=== PATIENT | male | born 1965 | race Caucasian/White ===

== ENCOUNTER 2017-04-03 07:28 | Outpatient (CLI) | payer BC ==
[~2017-04-03] VITALS: Ht 180.3 cm; Wt 90.9 kg
--- NOTE | ~2017-04-03 | HEMODYNAMI ---
PATIENT:DEIRDRE PAREDES MEDICAL RECORD: [id number] : 65 LOCATION:[facility] ADMISSION DATE: 04/03/17 Generatedon:04/03/20179:58 Patient name: DEIRDRE PAREDES Patient #: [id number] SSN: DO B: 1965 Date of study: 04/03/2017 Page: Of Hemodynamic Procedure Report Patient Data Patient Demographics Procedure consent was obtained First Name: DEIRDRE Gender: Male Last Name: REGGIE : 1965 Middle Initial: D Age: 51 year(s) Patient #: [id number] Race: Unknown Additional ID: [id number] Contact details [address]: [address] [place] [address] State: [place] City: [place] Zip code: [address] Past Medical History Allergies: No known allergies Admission Admission Data Admission Date: 04/03/2017 Admission Time: 7:28 Admit Source: Other Lab Results Lab Result Date: 04/03/2017 Lab Result Time: 8:00 Biochemistry Name Units Result Min Max BUN mg/dl 14 --(--*-)-- 7 18 Creatinine mg/dl 0.9 --(-*--)-- 0.6 1.3 CBC Name Units Result Min Max Hematocrit % 40.3 -*(----)-- 42 54 Hemoglobin g/dl 14.6 --(-*--)-- 13.5 17.5 Procedure Procedure Types Cath Procedure Diagnostic Procedure C [facility] w/Coronaries FFR/IVUS Intra-Coronary IVUS Initial PCI Procedure Coronary Stent Coronary Stent Initial Miscellaneous Procedures Moderate Sedation up to 15 minutes Procedure Description Procedure Date Procedure Date: 04/03/2017 Procedure Start Time: 9:30 Procedure End Time: 9:47 Procedure Staff Name Function Nadege Woods RT Scrub Nitin Urban MD Performing Physician Kobe Cline RT Monitor Charlee Parmar RN Nurse Procedure Data Cath Procedure Fluoroscopy Diagnostic fluoroscopy Total fluoroscopy Time: 3.3 time: 3.3 min min Diagnostic fluoroscopy Total fluoroscopy dose: 391 dose: 391 mGy mGy Contrast Material Contrast Material Type Amount (ml) Isovue 300 69 Entry Location Entry Primary Successful Side Size Upsize Upsize Entry Closure Dao ccessful Closure Location (Fr) 1 (Fr) 2 (Fr) Remarks Device Remarks Radial Right 6 Fr Mechanical artery Short Compression Estimated blood loss: 10 ml Diagnostic catheters Device Type Used For End Catheter Placement Diagnostic Terumo 5Fr Procedure [place] 110cm catheter Procedure Complications No complications Procedure Medications Medication Administration Route Dosage Fentanyl I.V. 100 mcg Versed I.V. 2 mg 0.9% NaCl I.V. 100 ml/hr Lidocaine 2% added to field 20 Heparin Flush Bag added to field 2 bags (1000units/500ml NS) Oxygen NC 2 l/min Versed I.V. 1 mg Fentanyl I.V. 50 mcg Radial Cocktail added to field 1 syringe (Verapomil 2mg/Nitro 400mcg/Heparin 1500units) Heparin Bolus 4000 units Integrilin (Bolus I.V. 8.6 ml 2mg/ml) Hemodynamics Rest HGB: 14.6 (g/dl) Heart Rate: 65 (bpm) Snapshots Pre Cath Intra NCS Post Cath Vital Signs Time Heart Resp SPO2 etCO2 NIBP Rhythm Pain Sedation Rate (ipm) (%) (mmHg) (mmHg) Status Level (bpm) 9:17:46 70 16 98 0 118/66(84) NSR 0 (11) 10(A) , No pain 9:22:24 63 16 98 38.3 113/64(82) NSR 0 (11) 10(A) , No pain 9:26:59 69 14 97 38.3 104/68(84) NSR 0 (11) 10(A) , No pain 9:31:35 69 14 96 39.1 100/64(87) NSR 0 (11) 9(A) , No pain 9:36:10 76 18 95 24.8 75/54(67) NSR 0 (11) 9(A) , No pain 9:41:09 78 17 96 33.1 Measuring NSR 0 (11) 9(A) , No pain 9:41:17 78 17 96 33.1 100/46(85) NSR 0 (11) 10(A) , No pain 9:45:51 78 18 96 23.3 102/57(80) NSR 0 (11) 10(A) , No pain 9:49:28 76 18 96 17.3 92/67(82) NSR 0 (11) 10(A) , No pain Medications Time Medication Route Dose Verified Delivered Reason Note s Effectiveness by by 9:25:08 Heparin Flush added 2 bags Nitin Taveras used for Bag to Wilmar Urban MD procedure (1000units/500ml field NS) 9:25:23 Oxygen NC 2 l/min Nitin Deshpande Per physician Wilmar Parmar RN 9:25:38 0.9% NaCl I.V. 100ml/hr Nitin Charlee used for Wilmar Parmar RN procedure 9:25:51 Lidocaine 2% added 20ml Nitin Taveras for local to vial Wilmar Urban MD anesthetic field 9:26:52 Fentanyl I.V. 100 mcg Nitin Deshpande for sedation Wilmar Parmar RN 9:27:05 Versed I.V. 2 mg Nitin Ulrichfany for sedation Wilmar Parmar RN 9:28:10 Radial Cocktail added 1 Nitin Taveras for (Verapomil to syringe Wilmar Urban MD vasodilation 2mg/Nitro field 400mcg/Hepari 9:30:36 Heparin Bolus 4000 Nitin Deshpande for veri fied units Wilmar Parmar RN anticoagulation by 9:31:36 Versed I.V. 1 mg Nitin Deshpande for sedation Wilmar Parmar RN 9:31:40 Fentanyl I.V. 50 mcg Nitin Deshpande for sedation Wilmar Parmar RN 9:40:53 Integrilin I.V. 8.6ml Nitin Deshpande for veri fied (Bolus 2mg/ml) Wilmar Parmar RN antiplatelet by dr. shabbir urban wasted 1.5 Ml of vial Procedure Log Time Note 9:06:15 Informed consent obtained and on chart 9:06:35 Admit Source: Other 9:07:03 Nadege Woods RT(R) sent for patient. Start room use. 9:07:05 Diagnostic Cath status Elective 9:07:07 Time tracking: Regular hours 9:07:10 Plan of Care:Hemodynamics will remain stable., Cardiac rhythm will remain stable., Comfort level will be maintained., Respiratory function will remain adequate., Patient/ family verbilizes understanding of procedure., Procedure tolerated without complication., Recovers from procedure without complications.. 9:07:47 H&P Date Dictated: 04/03/2017 New H&P dictated by physician.. 9::31 Lab Result : Hemoglobin 14.6 g/dl 9:: Lab Result : Hematocrit 40.3 % 9::31 Lab Result : BUN 14 mg/dl 9:: Lab Result : Creatinine 0.9 mg/dl 9:10:24 Patient allergic to No known allergies 9:11:32 Patient received from Pre/Post Procedure Room to CCL 1 Alert and oriented. Tansferred to table in Supine position. 9:11:34 Correct patient and procedure confirmed by team. 9:11:34 Warm blankets applied, and lesley hugger turned on for patient comfort. 9:11:36 ECG and BP/O2 sat monitors applied to patient. 9:11:37 Pre-procedure instructions explained to patient. 9:11:38 Pre-op teaching completed and patient verbalized understanding. 9:11:39 Family in waiting room. 9:11:41 Patient NPO since Midnight. 9:16:55 Vital chart was started 9:24:35 Is patient on blood thinner?No 9:24:37 Patient diabetic? No. 9:24:40 Snore? Yes 9:24:40 Previous problem with sedation/anesthesia? No ? 9:24:41 Sleep apnea? Yes 9:24:42 Deviated septum? No 9:24:43 Opens mouth fully? Yes 9:24:44 Sticks out tongue? Yes 9:24:46 Airway obstruction? No ? 9:24:48 Dentures? No ? 9:24:50 Modified Braden's test Ulnar < 7 seconds 9:24:52 Patient pain scale 0/10 ?. 9:24:55 IV patent on arrival in left forearm with 0.9% NaCl at O. 9:24:57 Lab results completed and on chart. 9:24:59 Right Radial & Right Groin area was prepped with chlora-prep and draped in sterile fashion 9:25:00 Alarms reviewed by R. N. 9:25:01 Sharps counted by scrub and verified by R.N. 9:25:03 Use device set Radial Dx 9:25:04 MBrace Wrist Support opened to sterile field. 9:25:05 Acist Hand Control opened to sterile field. 9:25:05 Acist Manifold opened to sterile field. 9:25:06 Tegaderm 4 x 4 opened to sterile field. 9:25: Medline Cath Pack opened to sterile field. 9:25:07 Acist Syringe opened to sterile field. 9:25:08 Heparin Flush Bag (1000units/500ml NS) 2 bags added to field was administered by Nitin Urban MD; used for procedure; 9:25:08 Terumo 6Fr Slender Glidesheath opened to sterile field. 9:25:08 Bag Decanter opened to sterile field. 9:25: St Jose Elias 260cm J .035 wire opened to sterile field. 9:25:15 Physician arrived 9:25:16 Final Timeout: patient, procedure, and site verified with staff and physician. All members of the team are in agreement. 9:25:16 --------ALL STOP TIME OUT------ 9::18 Right Radial & Right Groin site verified by team. 9:25:22 Physical assessment completed. ASA score P 2 - A patient with mild systemic disease as per Nitin Urban MD. 9::23 Oxygen 2 l/min NC was administered by Charlee Parmar RN; Per physician; ::25 Sedation plan: IV Moderate Sedation Medication:Versed, Fentanyl 9:25:38 0.9% NaCl 100ml/hr I.V. was administered by Charlee Parmar RN; used for procedure; 9::51 Lidocaine 2% 20ml vial added to field was administered by Nitin Urban MD; for local anesthetic; 9::50 Baseline sample Acquired. 9::52 Fentanyl 100 mcg I.V. was administered by Charlee Parmar RN; for sedation; 9::54 Rhythm: sinus rhythm 9::55 Full Disclosure recording started 9:27:05 Versed 2 mg I.V. was administered by Charlee Parmar RN; for sedation; 9:28:10 Radial Cocktail (Verapomil 2mg/Nitro 400mcg/Heparin 1500units) 1 syringe added to field was administered by Nitin Urban MD; for vasodilation; 9:28:11 Zero performed for pressure channel P1 9:30:36 Heparin Bolus 4000 units was administered by Charlee Parmar RN; for anticoagulation; verified by 9:30:53 Procedure started. 9:30:58 Local anesthetic to right radial artery with Lidocaine 2% by Nitin Urban MD.INITIAL ACCESS ONLY 9:31:10 A 6 Fr Short sheath was inserted into the Right Radial artery 9:31:31 A Diagnostic Terumo 5Fr [place] 110cm catheter was advanced over the wire and used for Procedure. 9:31:36 Versed 1 mg I.V. was administered by Charlee Parmar RN; for sedation; 9:31:40 Fentanyl 50 mcg I.V. was administered by Charlee Parmar RN; for sedation; 9:32:47 LV gram done using OBREGON 9:32:49 Injector settings: Ml/sec: 5, Volume: 15, 9:32:56 EF : 60 % 9:33:03 LCA angiography performed. 9:33:58 RCA angiography performed. 9:34:38 Bluebox Now! PT Graphix J 182cm 0.014 guide wire opened to sterile field. 9:34:39 Merit BasixCompak Inflation Kit opened to sterile field. 9:34:39 Medtronic Launcher 6Fr AR 2.0 guide catheter opened to sterile field. 9:35:22 [place]ag[place] IVUS Catheter opened to sterile field. 9:35:40 6 Fr AR 2 guide catheter was inserted over the wire 9:35:47 pt grapix wire advanced. 9:36:00 Wire advanced across lesion. 9:36:02 IVUS catheter advanced over wire. 9:39:21 IVUS pass to RCA lesion performed. 9:39:22 IVUS catheter removed over wire. 9:40:38 Wire removed. 9:40:47 [place]arez Whisper J 300cm 0.014 guide wire opened to sterile field. 9:40:53 Integrilin (Bolus 2mg/ml) 8.6ml I.V. was administered by Charlee Parmar RN; for antiplatelet therapy; verified by dr. urban wasted 1.5 Ml of vial 9:41:11 whisper wire advanced. 9:41:38 Wire advanced across lesion. 9:42:09 Inflation Number: 1 A Medtronic Integrity 3.5 X 22 stent was prepped and advanced across the Prox RCA. The stent was deployed at 17 LEONID for 0:10 (min:sec). 9:42:16 Stent catheter was removed intact over wire. 9:42:17 Wire removed. 9:42:18 Guide catheter removed. 9:42:35 Terumo TR Band Standard opened to sterile field. 9:42:45 Sheath removed intact; hemostasis achieved with Mechanical Compression to the Right Radial artery. 9:42:47 Procedure ended.(Physican Out) 9:44:42 Fluoroscopy time 03.30 minutes. 9:44:45 Fluoroscopy dose: 391 mGy 9:44:45 Flurop Dose total: 391 9:44:48 Contrast amount:Isovue 300 69ml. 9:44:50 Sharps counted by scrub and verified by R.N. 9:44:52 TR band inflated with 9cc of air. 9:44:53 Insertion/operative site no bleeding no hematoma. 9:44:58 Post right radial artery:stable, soft, clean and dry 9:45:17 Post Procedure Pulses reassessed and unchanged 9:45:19 Post-procedure physical assessment completed. ASA score P 2 - A patient with mild systemic disease as per Nitin Urban MD. 9:45:22 Post procedure rhythm: unchanged. 9:45:26 Estimated blood loss: 10 ml 9:45:27 Post procedure instruction explained to patient.Patient verbalizes understanding. 9:45:28 Patient needs reinforcement of post procedure teaching. 9:45:41 Procedure type changed to Cath procedure, Diagnostic procedure, LHC, LHC w/Coronaries, FFR/IVUS, Intra-Coronary IVUS Initial, PCI procedure, Coronary Stent, Coronary Stent Initial, Miscellaneous Procedures, Moderate Sedation up to 15 minutes 9:47:02 Procedure and supply charges have been captured, reviewed, submitted and are correct. 9:47:05 Procedure Complication : No complications 9:47:07 See physician's report for complete and final results. 9:47:07 Vital chart was stopped 9:47:09 Report given to Pre/Post Procedure Room. 9:47:11 Patient transfered to Pre/Post Procedure Room with Stretcher. 9:47:13 Full Disclosure recording stopped 9:47:13 Procedure ended. 9:47:21 End room use (Document Last) Intervention Summary Intervention Notes Time ActionType Lesion and Equipment Action# Pressure Duration Attributes Used 9:42:[address] stent Prox RCA Medtronic 1 17 00:10 Integrity 3.5 X 22 stent Device Usage Item Name Manufacture Quantity Catalog Number Hospital Part Current [facility] al Lot# / Charge Number Stock Stock Serial# Code MBradha Excela [facility] 1 140-0250-00 325017 90508 386947 5 Wrist Vascular Support Dynamics Acist Acist 1 12522 929125 131677 260997 5 Manifold Medical Systems Inc Acist Hand Acist 1 06263 495664 791694 201375 5 Control Medical Systems Inc Tegaderm 4 3M 1 1626W 071367 308004 257250 5 x 4 Acist Acist 1 94601 741877 751715 335979 20 Syringe Medical Systems Inc Medline Cardinal 1 [id number] 668369 87336 798462 5 Cath Pack Health Bag Microtek 1 2002S 314867 50295 465576 5 Decanter Medical Inc. Terumo 6Fr Terumo 1 [id number] 123302 904095 098122 [address] [facility] St Jose Elias 1 731216 930854 455867 659457 30 260cm J .035 wire Diagnostic Terumo 1 40-0113 182907 031661 259763 5 Terumo 5Fr [place] 110cm catheter [place] Sci [place]eria 1 [id number] 067877 743070 425361 5 PT Graphix Scientific J 182cm 0.014 guide wire Medtronic Medtronic 1 [id number] 015911 65149 960328 1 Launcher 6Fr AR 2.0 guide catheter Merit Merit 1 [id number] 193427 879062 344211 15 [facility] Medical Inflation Kit [place] 1 [id number] 747625 593759 036634 8 [place] Eagley[place] IVUS Catheter Juarez Juarez 1 [id number] 679165 615712 743488 5 Whisper J Vascular 300cm 0.014 guide wire Medtronic Medtronic 1 [id number] 037475 445091 5 [id number] Integrity 3.5 X 22 stent Terumo TR Terumo 1 [id number] 483960 572032 909168 40 Band Standard Signature Audit [place] Stage Time Signature Unsigned Intra-Procedure 04/03/2017 Kobe Light Counts 9:50:01 AM RT(R) RT(R) 04/03/2017 9:55:16 AM Intra-Procedure 04/03/2017 Kobe Cline 9:58:11 AM RT(R) Signatures Monitor : Kobe Cline RT Signature : Date : Time : [place] [id number] [place] [address]
[2017-04-03] MEDS ORDERED: BUPROPION HCL150 M1 PO (07:43)
[2017-04-03] MEDS ORDERED: CELEXA20 MG PO (07:43)
[2017-04-03] MEDS ORDERED: PRINIVIL20 MG PO (07:43)
[2017-04-03] MEDS ORDERED: ZYRTEC10 MG PO (07:44)
[2017-04-03] MEDS ORDERED: OMEPRAZOLE20 M1 PO (07:44)
[2017-04-03] MEDS ORDERED: FISH OIL 1,0001 CA1 PO (07:44)
[2017-04-03] MEDS ORDERED: VITAMIN C1000 MG PO (07:45)
[2017-04-03] MEDS ORDERED: OCUVITE TABLET1 TA1 PO (07:45)
[2017-04-03] MEDS ORDERED: MILK THISTLE140 MG PO (07:45)
[2017-04-03] MEDS ORDERED: VITAMIN D31000 UNIT PO (07:45)
[2017-04-03] MEDS ORDERED: MULTIPLE VITAMI1 TA1 PO (07:45)
[2017-04-03] MEDS ORDERED: CINNAMON500 MG PO (07:46)
[2017-04-03] MEDS ORDERED: PROBIOTIC1 EAC1 PO (07:46)
[2017-04-03] MEDS ORDERED: ADDERALL XR 2020 MG PO (07:47)
[2017-04-03] MEDS ORDERED: HYDROCODON-ACE1 EAC7 PO (07:47)
[2017-04-03 07:56] VITALS: BP 125/69; Ht 180.3 cm; Wt 90.9 kg
[2017-04-03 08:20] LABS: BASOPHILS 0.4 % (0-2); EOSINOPHILS 3.4 % (0-7); HEMATOCRIT 40.3 % (42.0-54.0); HEMOGLOBIN 14.6 g/dL (13.5-17.5); IMMATURE GRANULOCYTES 0.4 % (0-5); LYMPHOCYTES 33.8 % (15-50); MCH 32.8 pg (26.0-34.0); MCHC 36.2 g/dL (31.0-37.0); MCV 90.6 fL (80.0-100.0); MEAN PLATELET VOLUME 9.5 fL (7.4-10.4); MONOCYTES 9.3 % (2-11); NEUTROPHILS 52.7 % (40-80); PLATELET COUNT 203 10x3/uL (130-400); RBC 4.45 10x6/uL (4.20-6.10); RDW 12.6 % (11.5-14.5); WBC 6.7 10x3/uL (4.8-10.8)
[2017-04-03 08:38] LABS: CALC OSMOLALITY 266 mosm/kg (275-300); CALCIUM 8.8 mg/dL (8.5-10.1); CARBON DIOXIDE 22.1 mmol/L (21.0-32.0); CHLORIDE - SERUM 99 mmol/L (98-107); CREATININE - SERUM 0.9 mg/dL (0.6-1.3); GLUCOSE 107 mg/dL (74-106); SODIUM 133 mmol/L (136-145); UREA NITROGEN 14 mg/dL (7-18); eGFR NON AFRICAN AMERICAN > 90 mL/min (90-120)
[2017-04-03] MEDS ORDERED: BAYER CHEWABLE81 MG PO (10:09)
[2017-04-03] MEDS ORDERED: PLAVIX75 MG PO (10:09)
--- NOTE | 2017-04-03 10:43 | NUR ---
1020 LYING FLAT, ROOM AIR WITH NO DISTRESS. VITALS ALL WNL. R WRIST TR BAND C/D/I WITH NO HEMATOMA OR BLEEDING. AT SIDE.
--- NOTE | 2017-04-03 13:16 | NUR ---
1050 RESTING WITH EYES CLOSED, ROOM AIR. ALL VITALS WNL. R WRIST TR BAND C/D/I WITH NO HEMATOMA OR BLEEDING. AT BEDSIDE. 1130 SIPPING WATER WITH NO NAUSEA. R WRIST REMAINS C/D/I. ALL VITALS WNL. 1230 SITTING UP IN BED EATING TURKEY SANDWICH WITH ASSIST FROM AT BEDSIDE. R WRIST REMAINS C/D/I. 1315 2CC AIR REMOVED FROM R WRIST TR BAND. WILL MONITOR CLOSELY FOR BLEEDING.
--- NOTE | 2017-04-03 13:43 | NUR ---
PIV REMOVED FROM LEFT FOREARM WITH BANDAID APPLIED. UP TOBEDSIDE TO DRESS WITH ASSIST FROM .
--- NOTE | 2017-04-03 14:02 | NUR ---
TR BAND WEANED COMPLETELY. TEGADERM AND COTTON BALL APPLIED. BRACE RE APPLIED TO R WRIST. UP TO BATHROOM TO VOID. D/C INSTRUCTIONS DISCUSSED WITH PATIENT AND AT BEDSIDE. WHEELED OUT VIA WHEELCHAIR BY CATH TEAM.
--- NOTE | 2017-04-17 12:14 | HP ---
PATIENT: DIERDRE PAREDES MEDICAL RECORD: [id number] ACCOUNT: [id number] LOCATION:[facility] : 65 ADMISSION DATE: 04/03/17 HISTORY AND PHYSICAL EXAMINATION DIAGNOSES: 1. Angina. 2. Abnormal nuclear stress test. 3. Hyperlipidemia. HISTORY OF PRESENT ILLNESS: This is a gentleman with no previous cardiac history, who has been having chest pain and chest discomfort compatible with angina. Risk stratified with stress testing and Cardiolite imaging revealing significant ischemia inferiorly, so now brought for cardiac catheterization. PHYSICAL EXAMINATION: GENERAL APPEARANCE: Well-nourished, well-developed, appears stated age. Level of distress, comfortable. PSYCHIATRIC: Mental status, alert, normal affect. Orientation, oriented to time, place and person. EYES: Lids and conjunctiva, noninjected. No discharge, no pallor. ENT: Lips, teeth, gums, normal dentition. Oropharynx, no cyanosis, no pallor. NECK: Carotid arteries, bilateral normal upstroke, no bruits, no thrills. JUGULAR VEINS: No jugular venous pressure or distention. CERVICAL LYMPH NODES: Nontender, nonenlarged. THYROID: Not enlarged. Nontender. No nodules. LUNGS: Respiratory effort, unlabored. CHEST: Normal curvature. No thoracic deformity. No chest wall tenderness. Percussion, resonant. Auscultation, clear. No wheezes, no rales, no rhonchi. CARDIOVASCULAR: Precordial exam, nondisplaced. No heaves or pericardial thrills. Rate and rhythm, regular. Heart sounds, normal S1, normal S2. No S3, no gallop, no rub. Systolic murmur, not heard. Diastolic murmur, not heard. EXTREMITIES: No cyanosis, no edema. Peripheral pulses, full and equal in all extremities, except as noted. No bruits appreciated. ABDOMEN: Soft, nondistended. Normal aorta. No bruit. Nontender. No masses. Liver, nontender, no hepatomegaly. Spleen, nontender, no splenomegaly. MUSCULOSKELETAL: No joint tenderness. No joint swelling. No erythema. NEUROLOGICAL: Normal gait, normal strength, normal tone. SKIN: Warm and dry. REVIEW OF SYSTEMS: The patient reports easy bruising but reports no swollen glands. The patient reports no fever, no night sweats, no significant weight gain, no significant weight loss. No significant exercise tolerance. The patient reports no dry eyes, no irritation, no vision change. Patient reports no difficulty hearing and no ear pain. Patient reports no frequent nose bleeds or nose and sinus problems. Patient reports on arm pain on exertion. No shortness of breath while lying down. No history of heart murmur. Patient reports no cough, no wheezing or coughing up blood. Patient reports no abdominal pain, no vomiting. Normal appetite. No diarrhea and not vomiting blood. No nausea and no constipation. Patient reports no incontinence. No difficulty urinating. No hematuria. No increased frequency. Patient reports no muscle aches. No weakness, no arthralgias, no back pain. No swelling of the extremities. Patient reports no abnormal mole, no jaundice, no rashes. Reports no loss of consciousness. No weakness and no numbness. No seizures, dizziness, or headaches. The patient reports no depression, no sleep disturbance, feeling HISTORY AND PHYSICAL [id number] LAFEVERS,DEIRDRE D safe in a relationship and no alcohol abuse. Patient reports on fatigue. Reports no runny nose or sinus pressure. No itching, no hives, and no frequent sneezing. OVERALL IMPRESSION: Anginal symptomatology, abnormal nuclear stress test. Most likely has hemodynamically significant coronary artery disease. We will proceed with coronary angiography. Further care depends upon findings of angiography. TRANSINT:[id number] Voice Confirmation ID: [id number] DOCUMENT ID: [id number] CRISTA SNELL MD at 1214 CC: [id number] DICTATION DATE: 04/03/17 0851 FUR REPAIR INSPECTOR: 04/03/17 1355 DEP CLI 04/03/17 [place] [id number]
--- NOTE | 2017-04-17 12:17 | OP ---
PATIENT NAME: DEIRDRE PAREDES MEDICAL RECORD: [id number] :65 LOCATION:D.CAT ADMISSION DATE: SURGEON: CRISTA SNELL MD DATE OF OPERATION: 04/03/2017 PROCEDURES: 1. PTCA stent to RCA. 2. Left heart catheterization. 3. Selective coronary angiography. 4. Left ventriculogram. 5. Intravascular ultrasound. INDICATION: Angina and coronary artery disease. PROCEDURE IN DETAIL: After informed consent was obtained and after detailed explanation of risks, benefits as well as alternative therapies, the patient elected to proceed with angiogram and angioplasty. The right radial area was prepped and draped in normal sterile fashion. The right radial artery was cannulated via modified Seldinger technique with placement of 6-Eritrean sheath. All catheters exchanged through this sheath. FINDINGS: The left ventriculogram was performed in standard 30-degree OBREGON view, reveals good cardiac wall motion throughout all segments. Overall ejection fraction estimated 60%. SELECTIVE CORONARY ANGIOGRAPHY: 1. Left main showed no significant angiographic disease. 2. Left anterior descending has moderate irregularities, but no flow-limiting stenosis. 3. The left circumflex shows moderate irregularities, but no flow-limiting stenosis. 4. Right coronary has a 75% stenosis mid vessel confirmed by intravascular ultrasound. PTCA STENT OF THE RIGHT CORONARY ARTERY: The stent used was a 3.5 x 22 mm Integrity. Result was 0% residual stenosis. OVERALL IMPRESSION: Successful percutaneous transluminal coronary angioplasty stent of the right coronary artery going from 75% initial stenosis to 0% residual. TRANSINT:[id number] Voice Confirmation ID: [id number] DOCUMENT ID: [id number] CRISTA SNELL MD at 1217 CC: [id number] DICTATION DATE: 04/03/17 0946 TEST MAN: 04/03/17 1328 DEP CLI 04/03/17 [place] [address]
== END 2017-04-03 14:04 | disposition home or self-care (01) ==
LOC: D.CATH 07:28
PROVIDERS: Internal Medicine Interventional Cardiology
DX: I20.9 Angina pectoris, unspecified (principal); R94.30 Abnormal result of cardiovascular function study, unspecified; E78.5 Hyperlipidemia, unspecified; Z01.812 Encounter for preprocedural laboratory examination